=== PATIENT | male | born 1980 ===

== ENCOUNTER 2018-06-15 10:32 | Emergency (ER) | payer OTHER ==
[2018-06-15 10:53] VITALS: BMI 17.8
[2018-06-15] MEDS ORDERED: Lidocaine 5% Patch TD ONE (10:59)
[2018-06-15 11:05] VITALS: RESP 18; TEMP 98.1
--- NOTE | 2018-06-15 11:41 | ED PDOC ---
Arrival/HPI - History of Present Illness Time/Duration: < week Symptom Onset: Gradual Symptom Course: Unchanged Quality: Stabbing Severity Level: 7 Activities at Onset: Rest Context: Other (+pain worse with lying flat vs sitting) <Michael Alford - Last Filed: 06/15/18 12:40> <Rajiv Collier - Last Filed: 06/18/18 16:53> - General Chief Complaint: Back Pain Time Seen by Provider: 06/15/18 10:58 - History of Present Illness Narrative History of Present Illness (Text): 06/15/18 11:41 Mr. Grove is a 37 year old male with PMHx chronic back pain 2/2 herniated discs who presents with acute exacerbation of chronic pain. He complains of widespread back pain worst in the lumbar spine with radiation to the left hip and leg down to the knee. He is managed by a neurologist who prescribes the patient Gabapentin 1200 mg/day as well as Nabumetone. He had a spinal cord stimulator placed in 2015 which was removed as patient did not tolerate. His pain is generally controlled around a 4/10 but today is 7/10 and this morning when the pt woke up was a 9/10. He states that over the past 2 days his pain has become increasingly worse and pt came to ED today because it became unbearable. He has been taking double his dose of gabapentin without relief. Pt denies any recent trauma or heavy lifting. Pt also complains of diffuse headache with associated mild dizziness. He is able to ambulate unassisted. Denies saddle anesthesia, and has been urinating and moving bowels normally. Pt states he does not tolerate percocet 2/2 diarrhea. (Michael Alford) Past Medical History - Provider Review Nursing Documentation Reviewed: Yes - Cardiac Hx Cardiac Disorders: No - Pulmonary Hx Respiratory Disorders: No - Neurological Hx Neurological Disorder: No - HEENT Hx HEENT Disorder: No - Renal Hx Renal Disorder: No - Endocrine/Metabolic Hx Endocrine Disorders: No - Hematological/Oncological Hx Blood Disorders: No - Musculoskeletal/Rheumatological Hx Musculoskeletal Disorders: Yes - Psychiatric Hx Substance Use: No - Anesthesia Hx Anesthesia: Yes Hx Anesthesia Reactions: No Hx Malignant Hyperthermia: No <Michael Alford - Last Filed: 06/15/18 12:40> Family/Social History - Physician Review Nursing Documentation Reviewed: Yes Family/Social History: No Known Family HX Smoking Status: Former Smoker Hx Alcohol Use: Yes Frequency of alcohol use: Socially Hx Substance Use: No <Michael Alford - Last Filed: 06/15/18 12:40> Allergies/Home Meds <Michael Alford - Last Filed: 06/15/18 12:40> <Rajiv Collier - Last Filed: 06/18/18 16:53> Allergies/Adverse Reactions: Allergies No Known Allergies Allergy (Unverified 12/17/14 01:08) Home Medications: Home Meds Medication Instructions Recorded Confirmed Cyclobenzaprine HCl [Flexeril] PO BID 12/17/14 12/17/14 Gabapentin [Neurontin] 300 mg PO TID 06/15/18 06/15/18 Nabumetone [Relafen] 500 mg PO PRN PRN 06/15/18 06/15/18 Review of Systems - Review of Systems Constitutional: Normal. absent: Fatigue, Fevers Eyes: Normal. absent: Vision Changes, Photophobia, Eye Pain ENT: Normal. absent: Sore Throat, Rhinorrhea Respiratory: Normal. absent: SOB, Cough Cardiovascular: Normal. absent: Chest Pain, Palpitations Gastrointestinal: Normal. absent: Abdominal Pain, Constipation, Diarrhea, Nausea, Vomiting Genitourinary Male: Normal, Other (+makes urine). absent: Dysuria Musculoskeletal: Back Pain, Neck Pain, Other (+lumbar pain radiating to left hip and leg to knee) Skin: Normal. absent: Rash, Pruritis Neurological: Headache, Dizziness. absent: Focal Weakness, Gait Changes, Speech Changes, Facial Droop Psychiatric: Normal. absent: Anxiety, Depression <Michael Alford - Last Filed: 06/15/18 12:40> Physical Exam Vital Signs Reviewed: Yes Temperature: Afebrile Blood Pressure: Normal Pulse: Regular Respiratory Rate: Normal Appearance: Positive for: Uncomfortable Pain Distress: Moderate (7/10) Mental Status: Positive for: Alert and Oriented X 3 - Systems Exam Head: Present: Atraumatic, Normocephalic Pupils: Present: PERRL. No: Sluggish, Non-Reactive Extroacular Muscles: Present: EOMI. No: Gaze Palsy Conjunctiva: Present: Normal. No: Injected, Icteric Mouth: Present: Moist Mucous Membranes. No: Normal Tounge, Normal Teeth Nose (External): Present: Atraumatic. No: Abrasion, Contusion Neck: Present: Normal Range of Motion. No: JVD Respiratory/Chest: Present: Clear to Auscultation, Good Air Exchange. No: Respiratory Distress, Accessory Muscle Use, Wheezes Cardiovascular: Present: Regular Rate and Rhythm, Normal S1, S2, Peripheal Pulses Present. No: Murmurs Abdomen: Present: Tenderness, Normal Bowel Sounds. No: Distention, Peritoneal Signs, Rebound, Guarding Back: Present: Pain with Leg Raise (+Positive SLR on L). No: CVA Tenderness, Midline Tenderness, Paraspinal Tenderness Upper Extremity: Present: Normal Inspection, NORMAL PULSES. No: Cyanosis, Edema , Tenderness, Swelling, Erythema Lower Extremity: Present: Normal Inspection, NORMAL PULSES, Normal ROM. No: Edema, Cyanosis Neurological: Present: GCS=15, CN II-XII Intact, Speech Normal, Motor Func Grossly Intact, Normal Sensory Function, Gait Normal, Memory Normal Skin: Present: Warm, Dry, Normal Color. No: Rashes Psychiatric: Present: Alert, Oriented x 3 <Michael Alford - Last Filed: 06/15/18 12:40> Vital Signs Temp Pulse Resp BP Pulse Ox 06/15/18 13:13 98.1 F 80 18 124/73 98 06/15/18 12:15 78 18 126/74 96 06/15/18 11:04 98.1 F 84 18 128/81 96 Medical Decision Making <Michael Alford - Last Filed: 06/15/18 12:40> <Rajiv Collier - Last Filed: 06/18/18 16:53> ED Course and Treatment: Impression 37 y/o M w/ h/o herniated disks presenting w/ back pain Differential Diagnoses Includes But Is not Limited To: Lumbago Lumbar Spine Stenosis Sciatica Radiculopathy Plan --Toradol --Lidoderm Patch --Tylenol --Reassess & disposition Progress Notes (Rajiv Collier) - Lab Interpretations Narrative Lab Interpretation (Text): 06/15/18 11:43 Fingerstick glucose 104 (Michael Alford) Lab Results: Lab Results 06/15/18 11:42: POC Glucose (mg/dL) 104 - Medication Orders Current Medication Orders: Discontinued Medications Acetaminophen (Tylenol 325mg Tab) 975 mg PO STAT STA Stop: 06/15/18 11:00 Last Admin: 06/15/18 11:05 Dose: Not Given Non-Admin Reason: Patient Refused Ketorolac Tromethamine (Toradol) 60 mg IM STAT STA Stop: 06/15/18 11:00 Last Admin: 06/15/18 11:18 Dose: 60 mg MAR Pain Assessment Document 06/15/18 11:18 LA (Rec: 06/15/18 11:19 LA [id number]) Pain Reassessment Is this a pain reassessment? No Sleep Is patient sleeping during reassessment? No Presence of Pain Presence of Pain Yes Pain Scale Used Pain Scale Used Numeric Location Upper or Lower Lower Pain Location Body Site Back Description Description Chronic Intensity of Pain at present 9 IM Administration Charges Document 06/15/18 11:18 LA (Rec: 06/15/18 11:19 LA [id number]) Injection Site MAR Injection Site Right Gluteus Jose G Charges for Administration # of IM Administrations 1 Re-Assess: MAR Pain Assessment Document 06/15/18 12:18 LA (Rec: 06/15/18 12:56 LA [id number]) Pain Reassessment Is this a pain reassessment? Yes Sleep Is patient sleeping during reassessment? No Presence of Pain Presence of Pain No Lidocaine (Lidoderm) 1 ea TD ONCE ONE Stop: 06/15/18 11:00 Last Admin: 06/15/18 11:17 Dose: 1 ea MAR Transdermal Patch Site Document 06/15/18 11:17 LA (Rec: 06/15/18 11:17 LA [id number]) Transdermal Patch Site Transdermal Patch Site Right Lower Abdomen - PA / STATOR WINDER / Resident Statement / has reviewed & agrees with the documentation as recorded. / has examined the patient and agrees with the treatment plan. <Rajiv Collier - Last Filed: 06/18/18 16:53> Disposition/Present on Arrival - Present on Arrival History of DVT/PE: No History of Uncontrolled Diabetes: No Urinary Catheter: No History of Decub. Ulcer: No History Surgical Site Infection Following: None <Michael Alford - Last Filed: 06/15/18 12:40> - Present on Arrival Any Indicators Present on Arrival: No - Disposition Have Diagnosis and Disposition been Completed?: Yes Disposition Time: 12:34 Patient Plan: Discharge <Rajiv Collier - Last Filed: 06/18/18 16:53> - Disposition Diagnosis: Back pain Disposition: HOME/ ROUTINE Condition: IMPROVED Discharge Instructions (ExitCare): Upper Back Pain (DC) Prescriptions: Ibuprofen [Motrin Tab] 800 mg PO Q6H 4 Days #16 tab Lidocaine 5% [Lidoderm] 1 ea TD Q12 3 Days #5 patch Forms: [employer] - Smartphone [employer] Connect (Guyanese)
[2018-06-15 13:14] VITALS: BP 124/73; PULSE 80; O2SAT 98
== END 2018-06-15 13:19 | disposition home or self-care (01) ==
LOC: ED 10:32 → MERGE 10:32 → ED 13:19
DX: M54.9 Dorsalgia, unspecified (principal); Z87.891 Personal history of nicotine dependence
CPT/HCPCS: 82948; 96372; 99285; J1885